=== PATIENT | male | born 2000 | race Caucasian/White ===

== ENCOUNTER 2024-05-15 20:31 | Emergency (ER) | payer OTHER, SELFPAY ==
[2024-05-15 20:36] VITALS: BP 124/84
[2024-05-15 20:52] LABS: % Basophils 0.9 % (0-2); % Eosinophils 2.5 % (0-6); % Immature Granulocytes 0.3 % (0-0.5); % Lymphocytes 36.9 % (20.5-51.1); % Monocytes 10.7 % (1.7-9.3); % Neutrophils 48.7 % (42.2-75.2); Absolute Basophils 0.1 10^3/uL (0-0.2); Absolute Eosinophils 0.2 10^3/uL (0-0.7); Absolute Lymphocytes 2.5 10^3/uL (1.2-3.4); Absolute Monocytes 0.7 10^3/uL (0.1-0.6); Absolute Neutrophils 3.3 10^3/uL (1.4-6.5); Hemoglobin 14.4 g/dL (13.0-18.0); Mean Corp Hgb Conc. 35.1 g/dL (33.0-37.0); Mean Corpuscular Hgb 28.9 pg (27.0-31.0); Mean Corpuscular Volume 82.2 fL (80.0-94.0); Mean Platelet Volume 10.2 fL (7.4-10.4); Nucleated Red Blood Cells % 0 % (-); Platelet Count 222 10^3/uL (130-400); Red Blood Cell Count 4.99 10^6/uL (4.70-6.10); Red Cell Dist. Width 12.3 % (11.5-14.5); White Blood Cell Count 6.7 10^3/uL (4.8-10.8)
[2024-05-15 21:03] LABS: APTT 28.7 Sec (23.4-35.0); INR 1.06; PT 13.9 Sec (11.4-14.6)
[2024-05-15 21:14] LABS: ALT (SGPT) 23 U/L (0-50); AST (SGOT) 26 U/L (17-59); Albumin 5.1 g/dl (3.5-5.0); Alkaline Phosphatase 51 U/L (38-126); Blood Urea Nitrogen 22 mg/dl (9-20); Calcium 10.1 mg/dl (8.4-10.2); Carbon Dioxide 25 mmol/L (22-30); Chloride 101 mmol/L (98-107); Glucose 102 mg/dl (70-99); Sodium 139 mmol/L (135-145); Total Bilirubin 0.7 mg/dl (0.2-1.3); Total Protein 7.4 g/dl (6.3-8.2); eGFR > 60.00
[2024-05-15 21:20] LABS: Troponin I < 0.012 ng/ml
[2024-05-15 21:58] VITALS: BP 139/73
--- NOTE | 2024-05-15 22:31 | ED.GENMED ---
History of Present Illness
General
Chief Complaint: Chest Pain
Source: patient and family
Exam Limitations: none
Time Seen by Provider: 05/15/24 22:11
Nursing documentation reviewed up to this point in time: agreed with
History of Present Illness
History of Present Illness:
23-year-old male presents emergency room complaining of chest pain and shortness of breath for the past few months. The pain is worse over the past 4 days. He also states he had had rectal bleeding on and off. He is unsure if he has hemorrhoids.
Past History
Past History
ED Past Medical History: None
ED Past Surgical History: Orthopedic (Clavicle surgery) and Other (Nasal surgery)
Social History
Tobacco: Former smoker
Alcohol: None
Drug: None
Personal: Single
Living: with family
Employment: Student
Review of Systems
Review of Systems
Allergies reviewed?: Yes
All Other Systems: Not applicable
Constitutional: Reports no symptoms
EENT: Reports no symptoms
Respiratory: Reports trouble breathing
Cardiac: Reports chest pain
ABD/GI: Reports no symptoms
: Reports no symptoms
Musculoskeletal: Reports no symptoms
Skin: Reports no symptoms
Neurological: Reports no symptoms
Endocrine: Reports no symptoms
Hematologic/Lymphatic: Reports no symptoms
Psychiatric: Reports no symptoms
Phy Exam
Physical Exam
Physical Exam:
Physical Exam
General: no apparent distress, not acutely ill
Neck: supple. no meningeal signs. normal posterior pharynx
Heart: s1/s2 regular rate and rhythm, no murmur. equal radial
pulses.
HEENT: Pupils equal round reactive to light, EOMI
Lungs: no acute respiratory distress. clear bilaterally, chest wall tender to palpation, reproducing pain
Abdomen: normal bowel sounds. not tender. no CVAT, rectal exam Brown stool, guaiac negative, hemorrhoid palpated
Neuro: alert and oriented. no focal neurological deficits cranial nerves II through XII intact
Skin: no rash
Psychiatric: well kept. interactive and cooperative
Extremities: no edema. no calf tenderness. negative homans. good distal pulses
Scores
Heart Score for Chest Pain Patients
STEMI patient?: Not applicable
Course
Orders/Labs/Results
Orders:
Orders
05/15/24 20:37
Electrocardiogram (*1) Urgent
Reason for Study: Chest Pain
05/15/24 20:38
EKG- Treatment ONCE
05/15/24 20:42
Complete Blood Count/With Diff Urgent
Comprehensive Metabolic Panel Urgent
PTT Urgent
Prothrombin Time Urgent
Troponin I Urgent
Abnormal Lab Results
05/15/24
20:42
Absolute Monos (auto) 0.7 H 10^3/uL
(0.1-0.6)
Monocytes % 10.7 H %
(1.7-9.3)
BUN 22 H mg/dl
(9-20)
Glucose 102 H mg/dl
(70-99)
Albumin 5.1 H g/dl
(3.5-5.0)
05/15/24 20:42
05/15/24 20:42
Vital Signs
Initial and Last Documented VS:
Initial Vital Signs
Pulse Resp BP Pulse Ox
75 18 124/84 95
05/15/24 20:36 05/15/24 20:36 05/15/24 20:36 05/15/24 20:36
Last Documented Vital Signs
Temp Pulse Resp BP Pulse Ox
97.9 F 66 18 139/73 97
05/15/24 21:58 05/15/24 21:58 05/15/24 21:58 05/15/24 21:58 05/15/24 21:58
MDM/Problems Addressed
Differential Diagnosis Includes:
Costochondritis, PE, ACS
MDM/Problems Addressed:
23-year-old male with chest pain, suspect costochondritis. Normal EKG, negative troponin. Doubt PE or ACS. Patient also with hemorrhoid. Stable for discharge. Follow-up primary care.
*Pulse Oximetry
Patient hypoxic: no
*EKG
Interpreted by ED Provider?: Yes
EKG Intrepretation Date: 05/15/24
EKG Intrepretation Time: 20:40
Interpretation: abnormal
Comparison EKG: no comparison EKG present
Heart Rate: 57
Rate: bradycardiac
Rhythm: sinus
[place]: normal axis
Interval: normal interval
QRS Pattern: normal QRS
Ischemia: no ischemia
*Critical Care Note
Total Time (30-74mins, 75-104mins- exclusive of procedures): Not Applicable
Data Reviewed
Further Testing Considered But Not Given:
CT chest not indicated
Patient Management
Social determinants of health affecting care: Living situation
Escalation/DeEscalation of care consider admission/obs:
Admit not indicated
ED Attending Note
-
Portions of this chart may have been created with voice recognition software.� Occasional wrong word or��sound alike� substitutions may have occurred due to the inherent limitations of voice recognition software.
Discharge Plan
Departure
Patient Disposition: Home (Routine Discharge)
Date of Disposition: 05/15/24
Time of Disposition: 22:36
Patient with high blood pressure during this ER visit?: Yes
Condition: Good
Discharge Problem:
Acute chest wall pain, Hemorrhoid
Instructions: Chest Pain That Is Not Caused by the Heart (DC), Costochondritis (DC), Hemorrhoids ED, BLOOD PRESSURE
Prescriptions:
No Action
No Current Medications
0
Activity Restrictions/Additional Instructions:
Follow-up with primary care in 1 to 2 weeks. Return for any concerns.
Interventions
Interventions:
*Risk Screen - Suicide Last Done: 05/15/24 22:27
*General Assessment Last Done: 05/15/24 22:27
*Neglect/Abuse Screening Last Done: 05/15/24 22:27
ED- Cardiac Assessment Last Done: 05/15/24 22:01
Discharge Date and Time
Print Language: ICELANDIC
== END 2024-05-15 22:50 | disposition home or self-care (01) ==
LOC: EMR 20:31
PROVIDERS: EMERGENCY PHYSICIAN Emergency Medicine; FAMILY PHYSICIAN Internal Medicine
DX: R07.89 Other chest pain (principal); K62.5 Hemorrhage of anus and rectum; K64.9 Unspecified hemorrhoids; Z87.891 Personal history of nicotine dependence
CPT/HCPCS: 99283; 80053; 84484; 85025; 85610; 85730; 93005

== ENCOUNTER 2025-03-08 20:59 | Emergency (ER) | payer OTHER, SELFPAY ==
[2025-03-08 21:00] VITALS: BP 138/88
[2025-03-08 23:20] VITALS: BP 126/78
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
[2025-03-09] MEDS: MOTRIN 600 MG PO (01:18)
== END 2025-03-09 01:20 | disposition home or self-care (01) ==
LOC: EMR 20:59
PROVIDERS: EMERGENCY PHYSICIAN Emergency Medicine; FAMILY PHYSICIAN Internal Medicine
DX: S06.0XAA Concussion with loss of consciousness status unknown, initial encounter (principal); X58.XXXA Exposure to other specified factors, initial encounter; Z87.891 Personal history of nicotine dependence
CPT/HCPCS: 99284; 70450